=== PATIENT | female | born 1945 | race Caucasian/White ===

== ENCOUNTER → 2016-07-17 | Outpatient (CLI) | payer MEDICARE, MEDICAID ==
[~2016-07-17] MED LIST: AC325T PO; ALPR0.254 PO; ALPR0.5T7 PO; CALC-250 PO; CEFT1VIA58 IM; CHOL10007 PO; DEXT37.54 PO; DIVA125C3 PO; DIVA250T2 PO; DONE10TA41 PO; DONE10TA5 PO; DULO30CA PO; DULO30CA48 PO; FLUC100T PO; GABA800T2 PO; GLMP2T PO; GLUC1KIT3 IM; HALO1TAB PO; HYDR-3812 PO; INSU100V16 SC; INSU100V16 SQ; LACT20PA4 PO; LEVO25TA5 PO; LINE600T5 PO; LISI10TA2 PO; LORA1TAB PO; LURA80TA PO; MAGIC CUP PO; MAGN-47 PO; MEMA10TA PO; MEMA5TAB2 PO; METF500T4 PO; MIRT15TA6 PO; MTF500T PO; OMG1KC PO; PHEN-640 PO; QTP100T PO; QUET100T PO; QUET50TA PO; RISP1TAB2 PO; RIVA1PAT9 TD; RSP2T PO; SIMV10TA PO; SIMV10TA3 PO
--- OUTSIDE RECORDS SUMMARY | 2016-07-17 21:26 | XMS REPORT ---
Author Author [facility] Organization [facility] Address [address] [place], [place] [id number] Phone [phone] Summary purpose CCDA Sent to [facility] Chief Complaint and Reason for Visit No authorized Reason for Visit (Admitting Diagnosis) is available for this visit. Problem list No authorized problems tracked for continuity of care are available for this visit. Encounters No authorized problems tracked for encounter diagnoses are available for this visit. Medications No medications recorded for this patient visit Allergies, adverse reactions, alerts Allergen Category Ingredient Status Reaction Severity Onset *MRSA Drug *MRSA Inactive No known drug allergies No known drug allergies No known drug allergies Active Immunizations No immunizations recorded for this patient visit Relevant diagnostic tests and/or laboratory data No authorized results are available for this patient visit History of procedures Procedure Code Code Type Description Date Performed Performing Physician 37803 CPT-4 ELECTROCARDIOGRAM REPORT 06-05-2016 [place] Functional status No functional or cognitive status observations are available for this visit. Vital signs No authorized vital signs are available for this visit. Social history No Social History or smoking status observations were recorded for this visit. ( Unknown if ever smoked.) Treatment Plan No treatment plan text is available for this visit. Hospital discharge instructions No discharge instruction text is available for this visit.
[2016-07-17 21:27] LABS: BILIRUBIN,URINE NEGATIVE (NEGATIVE); KETONES,URINE NEGATIVE (NEGATIVE); LEUKOCYTE ESTERASE ,URINE 2+ (NEGATIVE); NITRITE,URINE NEGATIVE (NEGATIVE); PH,URINE 5 (5-9); PROTEIN,URINE NEGATIVE (NEGATIVE); UROBILINOGEN,URINE NORMAL (NORMAL)
[2016-07-17 21:53] LABS: WBC,URINE 25-50 /HPF; YEAST,URINE FEW /HPF
== END ==
PROVIDERS: ATTEND Family Medicine
DX: N39.0 Urinary tract infection, site not specified (principal)
CPT/HCPCS: 81000; 87077; 87088; 87186

== ENCOUNTER 2016-07-24 00:55 | Emergency (ER) | payer MEDICAID, MEDICARE ==
[~2016-07-24] VITALS: Ht 167.6 cm; Wt 54.4 kg
[~2016-07-24 00:55] MED LIST changes: -HYDR-3812 PO
[2016-07-24] MEDS ORDERED: TETANUS,DIPTH,PERTUSS P/F (BOOSTRIX) 0.5 ML VIAL IM ONE ×2 (01:15→04:47)
--- NOTE | 2016-07-24 04:36 | ED Fall/Injury ---
General Chief Complaint: Trauma-Non Activation Stated Complaint: FALL,SPLIT CHIN Nursing Triage Note: per EMS patient was running down the hallway and tripped and fell. staff denied LOC. Laceration to chin noted. Source: patient, EMS, [facility] records Exam Limitations: other (dementia) History of Present Illness Time seen by provider: 00:58 Initial Comments This 71-year-old woman from the [facility] presents to the emergency room via EMS after falling and striking her chin on the floor. She was running down the hallway when the incident occurred. She has laceration to her chin and complains of pain to the face. She denies pain anywhere else. EMS and [facility] staff reported she has behavioral problems at baseline and is not very interactive. She has struck out at staff multiple times. C-collar could not be applied due to patient's combative nature. She was also removing dressings from her chin. Attempts to keep c-collar in place were felt less safe then applying the color. Allergies and Home Medications Allergies Coded Allergies: No Known Drug Allergies (Unverified , 06/18/12) Home Medications PO 1000,1400,1900 (Reported) Acetaminophen 325 Mg Tab 325 MG PO Q4H PRN PRN PAIN (Reported) Alprazolam 0.5 Mg Tablet 0.5 MG PO Q12H PRN PRN ANXIETY (Reported) Cholecalciferol (Vitamin D3) 1,000 Unit Capsule 1,000 UNIT PO 1200 (Reported) Divalproex Sodium 250 Mg Tablet.dr 250 MG PO 1100,1600,2000 (Reported) Donepezil Hcl 10 Mg Tablet 10 MG PO 1200 (Reported) Hydrocodone/Acetaminophen 1 Each Tablet #30 1 EACH PO Q6H PRN PRN PAIN Prescribed by: BIJAN SMITH on 07/24/16 0501 Insulin Aspart 100 Unit/1 Ml Susp SQ 1000,2100 (Reported) 251-300 = 5 UNITS 301-350 = 7 UNITS 351-400 = 9 UNITS > 401 NOTIFY PCP Lactulose 20 Gm Packet 20 GM PO 1200,1999 (Reported) Levothyroxine Sodium 25 Mcg Tablet 25 MCG PO 1100 (Reported) Lisinopril 10 Mg Tablet 10 MG PO 1200 (Reported) Magnesium Hydroxide 400 Mg/5 Ml Oral.susp 5 ML PO DAILY PRN PRN NAUSEA (Reported ) Memantine Hcl 10 Mg Tablet 10 MG PO 1200,1999 (Reported) Mirtazapine 15 Mg Tablet 22.5 MG PO HS (Reported) TAKES 1 & 1/2 (15MG) TABLET [place] 3 Polyunsat Fatty Acids 1,000 Mg Cap 2,000 MG PO 1200,2000 (Reported) Quetiapine Fumarate 100 Mg Tablet 100 MG PO 1100,1600,1999 (Reported) Simvastatin 10 Mg Tablet 10 MG PO HS (Reported) Constitutional: no symptoms reported Eyes: No Symptoms Reported Ears, Nose, Mouth, Throat: no symptoms reported Respiratory: no symptoms reported Cardiovascular: no symptoms reported Gastrointestinal: no symptoms reported Genitourinary: no symptoms reported : No Musculoskeletal: see HPI Skin: see HPI Psychiatric/Neurological: See HPI Past Iwcfwva-Xjtmle-Wpuiwo Hx Patient Social History Alcohol Use: Denies Use Recreational Drug Use: No Smoking Status: Unknown if Ever Smoked Former Smoker/When Quit: Jul 14, 1979 Recent Foreign Travel: No Contact w/Someone Who Travel: No Recent Infectious Disease Expo: No Recent Hopitalizations: No Physical Abuse Screen: No Sexual Abuse: No Immunizations Up To Date Date of Pneumonia Vaccine: Dec 15, 2011 Date of Influenza Vaccine: May 14, 2016 Seasonal Allergies Seasonal Allergies: No Surgeries HX Surgeries: Yes Surgeries: Section, Orthopedic Respiratory Hx Respiratory Disorders: No Cardiovascular Hx Cardiac Disorders: Yes Cardiac Disorders: High Cholesterol Neurological Hx Neurological Disorders: Yes (Early on set Alzheimer's, vascular demntia wtih behavioral disturbance) Neurological Disorders: Dementia Reproductive System Hx Reproductive Disorders: No Genitourinary Hx Genitourinary Disorders: Yes (recent and current UTI, ARF) Gastrointestinal Hx Gastrointestinal Disorders: Yes Gastrointestinal Disorders: Chronic Constipation, Hiatal Hernia Musculoskeletal Hx Musculoskeletal Disorders: No Endocrine Hx Endocrine Disorders: Yes Endocrine Disorders: Hypothyroidsim, Diabetes, Non-Insulin dep HEENT HX ENT Disorders: No Cancer Hx Cancer: No Psychosocial Hx Psychiatric Problems: Yes (DEMENTIA WITH BEHAVIORAL DISORDER, PSYCHOSIS) Behavioral Health Disorders: Anxiety, Bipolar, Depression Integumentary HX Skin/Integumentary Disorder: No Blood Transfusions Hx Blood Disorders: No Family Medical History Significant Family History: No Pertinent Family Hx Family Medial History: FH: Alzheimers disease (Mother and siblings in 50-60s with early on set Alzheimer's disease per the patient's in-laws ) Unable to obtain Physical Exam Vital Signs Vital Sign - Last 12Hours 07/24/16 00:59 Temp 98.9 Pulse 84 Resp 18 B/P 151/90 Pulse Ox 96 Capillary Refill : Less Than 3 Seconds General Appearance: WD/WN mild distress HEENT: PERRL/EOMI TMs normal other (Deep 2 cm laceration to the underside of the chin. Tenderness to the jaw.) Neck: non-tender supple normal inspection Cardiovascular: regular rate, rhythm no edema no murmur Respiratory: lungs clear normal breath sounds no respiratory distress no accessory muscle use Gastrointestinal: normal bowel sounds non tender soft Extremities: normal inspection no pedal edema other (No evidence of injury) Neurologic/Psychiatric: assembly manager II-XII nml as tested no motor/sensory deficits alert disoriented x 3 other (Combative, often striking or attempting to strike staff) Skin: normal color warm/dry other (2 cm chin laceration) [place] Coma Score Best Eye Response: (4) Open Spontaneously Best Verbal Response: (4) Confused Conversation (Baseline her staff) Best Motor Response: (6) Obeys Commands Marybel Total: 14 Laceration Repair : Wound Location: Face Other Wound Location Chin Wound Length (cm): 2 Wound's Depth, Shape: linear, sub Q Wound Explored: clean Irrigated w/ Saline (ccs): 60 Betadine Prep?: Yes Anesthesia: Lidocaine w/ Epi Volume Anesthetic (ccs): 2 Suture: Prolene Suture Size: 4-0 Number of Sutures: 1 Sterile Dressing Applied?: No Progress/Results/Core Measures Results/Orders My Orders Orders-BIJAN ABDUL MD Ct Head/Face/Cervical Wo (07/24/16 01:09) Dipht,Pertuss(Acell),Tet Adult (Boostrix (07/24/16 01:15) Hydrocodone/Apap 5/325 Tablet (Lortab 5 (07/24/16 05:00) Dipht,Pertuss(Acell),Tet Adult (Boostrix (07/24/16 04:47) Medications Given in ED Vital Signs/I&O Vital Sign - Last 12Hours 07/24/16 07/24/16 00:59 05:10 Temp 98.9 Pulse 84 80 Resp 18 18 B/P 151/90 Pulse Ox 96 98 Blood Pressure Mean: 110 Progress Note : Progress Note Case was reviewed with Dr. Oreilly. He suggested localized injection of the fracture site followed by reduction of fracture. This was not possible as patient did not even tolerate suturing and had to be restrained to keep staff safe during laceration repair. Treatment of the fracture was deferred. Reduction will likely need to be done under sedation if needed. Patient was given hydrocodone for pain. Diagnostic Imaging Diagonstic Imaging: CT Plain Films/CT/US/NM/MRI: c-spine, head Comments CT head and C-spine viewed by me and [facility] report reviewed. No acute acute injuries to the cervical spine. There is significant motion artifact. No intracranial injuries or cranial fractures. There is a right mandibular condylar fracture with displaced condylar head. Departure Impression Impression: Primary Impression: Fall on same level Qualified Code: W18.30XA - Fall on same level, unspecified, initial encounter Additional Impressions: Closed fracture of right condylar process of mandible Qualified Code: S02.611A - Fracture of condylar process of right mandible, initial encounter for closed fracture Laceration of chin Qualified Code: S01.81XA - Laceration without foreign body of other part of head, initial encounter Disposition: 01 HOME, SELF-CARE Condition: Improved Departure-Patient Inst. Decision time for Depature: 04:30 Referrals: KATHERINE EDMONDS DO (PCP/Family) Primary Care Physician Patient Instructions: Jaw Fracture, Laceration Repair With Stitches (DC) Add. Discharge Instructions: Follow-up with Dr. Oreilly as soon as possible. Call later this morning to schedule an appointment. Soft and liquid diet the requires no chewing. Give hydrocodone as prescribed for pain management. Monitor wound for signs of infection and have suture removed in 5-10 days. Follow-up with her primary care provider soon as possible. Call today for an appointment or to arrange [facility] rounds. All discharge instructions reviewed with patient and/or family. Voiced understanding. Scripts Hydrocodone/Acetaminophen (Hydrocodon -Acetaminophen 5-325)1 Each Tablet1 Each PO Q6H PRN PAIN #30 TAB Prov:BIJAN ABDUL MD 07/24/16 Copy Copies To 1: KATHERINE EDMONDS JOSHUA T MD Jul 24, 2016 04:36
[2016-07-24] MEDS ORDERED: HYDROcodone/APAP 5 MG/325 MG (LORTAB) TAB PO ONE (05:00)
[2016-07-24] MEDS ORDERED: HYDR-3812 PO (05:01)
[2016-07-24 05:10] VITALS: BP 146/74
--- NOTE | 2016-07-24 08:21 | Diagnostic Imaging Report ---
PROCEDURE: CT head, face, and cervical spine without contrast. TECHNIQUE: Multiple contiguous axial images were obtained through the head, neck, and facial bones without the use of intravenous contrast. Sagittal and coronal reformations through the cervical spine and facial bones were also performed. INDICATION: Fall. Exam compared with the head and cervical CT, 12/13/2014. CT HEAD: Chronic senescent involutional changes with atrophy and periventricular white matter disease present. There is no intracranial hemorrhage and no calvarial fracture deformity. Right mandibular fracture noted. No paranasal sinus air-fluid level. Mastoid air cells and middle ear cavities clear. CT FACIAL BONES: Right mandibular fracture at the condyle is present with its articular head displaced inferomedially. Despite repeating sequences multiple times the patient's level of agitation result in a persistent degree of substantial motion artifact limiting exam sensitivity. No additional fracture could be identified. The nasal bones and bony nasal septum are intact. The zygomatic arches intact. Orbital narayanan intact. The maxillary wall is intact. No hemo-sinus. Pterygoid plates intact. The skull base appeared intact. CT CERVICAL SPINE: Motion degradation is most profound at the cervical imaging despite multiple sequence repeats. No definite fracture or dislocation is found. No paravertebral hemorrhage. There are degenerative changes to the discs endplates and facets throughout the cervical spine. Visualized pulmonary apices and thoracic inlet unremarkable. IMPRESSION: CT head: No intracranial hemorrhage, chronic senescent changes noted. CT facial bones: Displaced right mandibular condylar fracture. No other facial fracture or hemo-sinus apparent, however, sensitivity substantially degraded by motion artifact. CT cervical spine: Profoundly degraded exam owing to motion despite repeating intake and taking multiple steps to mitigate motion degradation. No obvious fracture or dislocation, however, in the setting of trauma. If there is persistent neck pain, consider repeat exam when patient neurological status affords greater cooperability. Agree with the preliminary. Dictated by: Dictated on workstation # [id number]
== END 2016-07-24 05:10 | disposition home or self-care (01) ==
LOC: EDUNIT# 00:55 → ER 00:58
DX: S01.81XA Laceration without foreign body of other part of head, initial encounter (principal); S02.611A Fracture of condylar process of right mandible, initial encounter for closed fracture; Z23 Encounter for immunization; E11.9 Type 2 diabetes mellitus without complications; G30.9 Alzheimer's disease, unspecified; F02.81 Dementia in other diseases classified elsewhere, unspecified severity, with behavioral disturbance; Z79.4 Long term (current) use of insulin; Z79.899 Other long term (current) drug therapy; Y92.128 Other place in nursing home as the place of occurrence of the external cause; Y99.8 Other external cause status
CPT/HCPCS: 12011; 70450; 70486; 72125; 90471; 90715

== ENCOUNTER → 2016-08-17 | Outpatient (CLI) | payer MEDICARE, MEDICAID ==
[~2016-08-17] MED LIST changes: +HYDR-3812 PO
[2016-08-17 07:39] LABS: BILIRUBIN,URINE NEGATIVE (NEGATIVE); KETONES,URINE NEGATIVE (NEGATIVE); LEUKOCYTE ESTERASE ,URINE 2+ (NEGATIVE); NITRITE,URINE NEGATIVE (NEGATIVE); PH,URINE 5 (5-9); PROTEIN,URINE 2+ (NEGATIVE); UROBILINOGEN,URINE NORMAL (NORMAL)
[2016-08-17 08:07] LABS: SQUAMOUS EPITHELIAL CELL,UR TNTC /HPF
[2016-08-17 08:08] LABS: CALCIUM OXALATE CRYSTALS,UR MODERATE /LPF; HYALINE CASTS, URINE 0-2 /LPF
== END ==
PROVIDERS: ATTEND Family Medicine
DX: N39.0 Urinary tract infection, site not specified (principal)
CPT/HCPCS: 81000; 87077; 87088; 87186

== ENCOUNTER → 2017-08-14 | Outpatient (CLI) | payer MEDICARE, MEDICAID ==
[~2017-08-14] MED LIST changes: +ACHD5005 PO; -HYDR-3812 PO
--- NOTE | 2017-08-14 18:14 | Diagnostic Imaging Report ---
INDICATION: Cough, congestion, and spitting up phlegm. COMPARISON STUDY: Chest from 2016. FINDINGS: Portable view of the chest demonstrates the lungs to be clear. The heart size and vascularity are normal. There are no pleural effusions. IMPRESSION: Normal portable chest. Dictated by: Dictated on workstation # [id number]
== END ==
LOC: RAD 17:44
PROVIDERS: ATTEND Family Medicine
DX: R05 Cough (principal)
CPT/HCPCS: 71045